=== PATIENT | female | born 1955 | race Caucasian/White ===

== ENCOUNTER 2020-10-29 06:22 | Day surgery (SDC) | payer OTHER ==
[~2020-10-29] VITALS: Ht 167.6 cm; Wt 71.8 kg
--- NOTE | ~2020-10-29 | OR ---
[facility] [address], [place] [address] Draft DATE OF OPERATION: 10/29/2020 SURGEON: Ayan Park MD PREOPERATIVE DIAGNOSIS: Symptomatic epigastric hernia. POSTOPERATIVE DIAGNOSIS: Symptomatic incarcerated epigastric hernia x2 (incarcerated properitoneal fat) PROCEDURES: 1. Repair of incarcerated epigastric hernias. 2. Implantation of Prolene mesh underlay technique with fascial closure. ANESTHESIA: General, LMA, Ayan Roland CRNA and local 20 mL of 0.25% Marcaine with epinephrine. 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 She is a patient of Dr. Rios. She has noted pain in the epigastric area and found to have a small mass there. She had an episode in June, which was particularly severe causing nausea, vomiting, and cold sweat. An ultrasound was ordered by Dr. Rios, which confirmed the epigastric hernia. She is admitted at this time to undergo repair of the hernia. She understands the risks of bleeding, infection, recurrence, and so on. FINDINGS: Indeed there were two epigastric hernias, one quite small with a fascial defect less than 5 mm and with herniated properitoneal fat. The other more dominant and palpable lesion had a fascial defect approximately 2 cm with herniated properitoneal fat. The fat was reduced to the properitoneal space. The fascial defect between the two defects divided and implantation of Prolene mesh in an underlay technique accomplished. Fascial reapproximation of the mesh was accomplished as well. DESCRIPTION OF PROCEDURE: The patient was brought to the operating room, given a general LMA type anesthetic. Preoperative antibiotic Ancef was given. Sequential compression device stockings used. Heparin subcutaneously administered. The palpable mass in the epigastric area was well identified. The abdomen was prepared with a chlorhexidine solution and draped sterilely. A vertical incision was made directly over the mass. Dissection carried PATIENT NAME: FLORENCIO BANEGAS OPERATIVE REPORT DATE OF : 57 REPORT #: [id number] PHYSICIAN: AYAN PARK MD PCP: FLORENCIA RIOS MD REPORT IS CONFIDENTIAL AND NOT TO BE RELEASED WITHOUT AUTHORIZATION [facility] [address], [place] [address] Draft through the subcutaneous tissue. Two small herniated lobules of fat were noted, the inferior one larger with a fascial defect approximately 2 cm, the superior one defect of about 5 mm. Both had herniated properitoneal fat. With various manipulations, the fact could not be reduced initially. The defect between the two fascial defects was divided with electrocautery and allowing for reduction of both the hernias to properitoneal space. Blunt dissection was undertaken circumferentially. Hemostasis was assured with electrocautery. A segment of Prolene mesh was cut to an oblong configuration and secured in the properitoneal space with interrupted 0-Prolene sutures. The fascial defect was reapproximated vertically with the same sutures incorporating the mesh. A 20 mL of 0.25% Marcaine with epinephrine injected locally. The Miguel's layer was reapproximated with interrupted 2-0 Vicryl and skin closed with running subcuticular 3-0 Vicryl. Steri-Strips were applied as was a silver sponge dressing. The patient tolerated the procedure well. BLOOD LOSS: Minimal. COMPLICATIONS: None. MD LACY Cohen/DIEUDONNE /[id number] cc: Florencia Rios MD Copies: ~ PATIENT NAME: FLORENCIO BANEGAS OPERATIVE REPORT DATE OF : 57 REPORT #: [id number] PHYSICIAN: AYAN PARK MD PCP: FLORENCIA RIOS MD REPORT IS CONFIDENTIAL AND NOT TO BE RELEASED WITHOUT AUTHORIZATION
[~2020-10-29 06:22] MED LIST: LEVOTHYROXINE50 MC1 PO
[2020-10-29] MEDS ORDERED: ASPIRIN325 MG PO (07:29)
[2020-10-29] MEDS ORDERED: ACETAMINOPHEN500 MG PO (09:23)
[2020-10-29] MEDS ORDERED: IBUPROFEN600 MG PO (09:23)
[2020-10-29] MEDS ORDERED: OXYCODON-ACETA1 EAC2 PO (09:23)
--- NOTE | 2020-10-29 09:23 | NUR ---
10/29/20 0923 Rayne Roman 0906 PT ARRIVED IN PACU SLEEPY WITH NO C/O'S. 0915 OXYGEN REMOVED. SATS 99% ON RA. 0920 PT AWAKE TALKING WITH STAFF. NO C/O'S.
--- NOTE | 2020-10-29 09:30 | NUR ---
PT ALERT, ORIENTED AND WILL HAVE A RIDE HOME FOLLOWING DC FROM HER SISTER. PT HAD FEW CONCERNS REGARDING SURGERY, SAID SHE HAD DONE HER REASEARCH. PT DID REQUEST PRAYER. WILL FOLLOW NEEDED
--- NOTE | 2020-10-29 09:44 | NUR ---
PT ARRIVES TO DS RM 5 FROM PACU AWAKE AND ALERT. PT STATES THAT SURGICAL SITE FEELS "SORE" BUT DOES NOT RATE IT PAINFUL. PT RATES 3/10 PAIN. PT EDUCATED ABOUT PAIN AND WILL LET RN KNOW IF/WHEN MEDS ARE NEEDED. PT PROVIDED GLASSES. PILLOW TO BRACE ABD WITH. CALL LIGHT WITHIN REACH, ICED WATER AND CRACKERS AT BEDSIDE.
[2020-10-29] MEDS ORDERED: PERCOCET 7.5-31 EACH PO (10:07)
--- NOTE | 2020-10-29 10:32 | NUR ---
PT RESTING IN BED ON PERSONAL CELL PHONE AWAKE AND ALERT. PT STATES, "PAIN IS ACTUALLY BETTER NOW THAN WHEN I GOT HERE" AND RATES 2-3/10. PT TOLERATES PO WELL, WATER REFILLED. PT AGREES TO USE CALL LIGHT WITH URGE TO VOID.
--- NOTE | 2020-10-29 10:48 | NUR ---
PT UP TO BATHROOM WITH RN ASSIST, STEADY GAIT. PT ABLE TO VOID 300 MLS LIGHT YELLOW URINE WITH NO PROBLEMS. PT BACK TO ROOM TO GET DRESSED, ENCOURAGED TO USE CALL LIGHT WITH ANY NEEDS.
--- NOTE | 2020-10-29 11:00 | NUR ---
DC INSTRUCTIONS PRESENTED TO PT, ALL QUESTIONS ADDRESSED. PT CALLS SISTER FOR SAFE RIDE HOME. IV IS REMOVED WNL. PT TRANSFERRED TO HOSPITAL ENTRANCE VIA , [place] [facility].
== END 2020-10-29 11:08 | disposition home or self-care (01) ==
LOC: DS 06:22 → OPS 06:22 → DS 06:45 → OPS 06:45
PROVIDERS: ATTEND Surgery
PROC: 0WUF0JZ Supplement Abdominal Wall with Synthetic Substitute, Open Approach (ICD-10-PCS; principal; 2020-10-29 06:45)
DX: K43.6 Other and unspecified ventral hernia with obstruction, without gangrene (principal); K21.9 Gastro-esophageal reflux disease without esophagitis; J45.909 Unspecified asthma, uncomplicated; E03.9 Hypothyroidism, unspecified; Z90.49 Acquired absence of other specified parts of digestive tract; Z79.890 Hormone replacement therapy; Z78.0 Asymptomatic menopausal state; Z90.711 Acquired absence of uterus with remaining cervical stump; Z01.812 Encounter for preprocedural laboratory examination; Z20.828 Contact with and (suspected) exposure to other viral communicable diseases
CPT/HCPCS: 00752; C1781; J0690; J1100; J1644; J1885; J2250; J2405; J2704; J2765; J3010; J7121